=== PATIENT | male | born 1980 | race African-American/Black ===

== ENCOUNTER 2020-06-25 11:18 | Emergency (ER) | payer OTHER ==
[~2020-06-25] VITALS: Ht 182.9 cm; Wt 62.0 kg
[2020-06-25] MEDS ORDERED: PENICILLIN G BENZATHINE 2,400,000 UNITS/4ML SYR IM ONE (12:15)
[2020-06-25 13:01] VITALS: BP 128/78
[2020-06-29 08:11] LABS: NEISSERIA GONORRHOEAE NAA Negative (Negative)
== END 2020-06-25 13:01 | disposition home or self-care (01) ==
LOC: ER 11:18
DX: Z20.2 Contact with and (suspected) exposure to infections with a predominantly sexual mode of transmission (principal)
CPT/HCPCS: 87491; 87591; 96372; 99283; J0561